=== PATIENT | female | born 1990 | race Caucasian/White ===

== ENCOUNTER → 2020-12-06 13:28 | Outpatient (BNVA) | payer OTHER, SELFPAY | PROVIDERS: Family Provider Family Medicine; PCP Family Medicine; Referring Provider Nurse Practitioner Family; Visit Provider Specialist | DX: G47.419 Narcolepsy without cataplexy (principal); F17.210 Nicotine dependence, cigarettes, uncomplicated | CPT/HCPCS: 99204 ==

== ENCOUNTER 2020-12-13 20:00 | Outpatient (CLI) | payer OTHER, SELFPAY | END 2020-12-13 20:01 | disposition home or self-care (01) | LOC: SLEEP 12-14 10:56 | PROVIDERS: Family Provider Family Medicine; PCP Family Medicine; Visit Provider Specialist | DX: G47.10 Hypersomnia, unspecified (principal) | CPT/HCPCS: 95810 ==

== ENCOUNTER 2020-12-14 07:30 | Outpatient (CLI) | payer OTHER, SELFPAY | END 2020-12-14 07:31 | disposition home or self-care (01) | LOC: SLEEP 12-15 13:35 | PROVIDERS: Family Provider Family Medicine; PCP Family Medicine; Visit Provider Specialist | DX: G47.419 Narcolepsy without cataplexy (principal) | CPT/HCPCS: 95805 ==

== ENCOUNTER → 2021-03-06 14:30 | Outpatient (BNVA) | payer OTHER, SELFPAY | PROVIDERS: Family Provider Family Medicine; PCP Family Medicine; Visit Provider Specialist | DX: G47.419 Narcolepsy without cataplexy (principal); F17.210 Nicotine dependence, cigarettes, uncomplicated | CPT/HCPCS: 99214 ==

== ENCOUNTER → 2021-06-05 15:08 | Outpatient (BNVA) | payer OTHER, SELFPAY | PROVIDERS: Family Provider Family Medicine; PCP Family Medicine; Visit Provider Specialist | DX: G47.419 Narcolepsy without cataplexy (principal); F17.200 Nicotine dependence, unspecified, uncomplicated | CPT/HCPCS: 99213; 99215 ==

== ENCOUNTER → 2021-09-05 15:16 | Outpatient (BNVA) | payer BC, SELFPAY | PROVIDERS: Family Provider Family Medicine; PCP Family Medicine; Visit Provider Specialist | DX: G47.419 Narcolepsy without cataplexy (principal); Z79.899 Other long term (current) drug therapy; Z87.891 Personal history of nicotine dependence | CPT/HCPCS: 99214 ==